=== PATIENT | male | born 1980 | race Caucasian/White ===

== ENCOUNTER → 2022-06-02 08:18 | Outpatient (CLI) | payer BC, SELFPAY ==
[2022-06-02 08:53] LABS: Basophils # 0.1 K/mm3 (0-0.2); Basophils % 1.1 % (0.1-2.0); Eosinophils # 0.3 K/mm3 (0.0-0.4); Eosinophils % 4.3 % (0.1-12.0); Hematocrit 46.9 % (42.0-52.0); Hemoglobin 15.6 g/dL (14.1-18.0); Lymphocytes # 2.5 K/mm3 (0.7-4.5); Lymphocytes % 41.9 % (10-50); Mean Corpuscular HGB Conc 33.3 g/dL (31.8-35.4); Mean Corpuscular Hemoglobin 28.3 pg (27.0-31.2); Mean Corpuscular Volume 85.2 fl (80-94); Mean Platelet Volume 8.7 fl (7.4-10.4); Monocytes # 0.3 K/mm3 (0.1-1.0); Monocytes % 4.5 % (1.7-9.3); Neutrophils # 2.9 K/mm3 (1.8-7.8); Neutrophils % 48.2 % (37.0-80.0); Platelet Count 200 K/mm3 (142-424); Red Blood Count 5.51 M/mm3 (4.60-6.20); Red Cell Distribution Width 14.3 % (11.5-17.5)
[2022-06-02 09:22] LABS: Alanine Aminotransferase 17 U/L (12-78); Albumin Level 4.1 g/dl (3.5-5.0); Albumin/Globulin Ratio 1.6 (1.1-1.8); Alkaline Phosphatase 86 U/L (38-126); Anion Gap 11.5 mEq/L (5-15); Aspartate Amino Transferase 21 U/L (17-59); Bilirubin,Total 0.5 mg/dl (0.2-1.3); Blood Urea Nitrogen 19 mg/dl (9-20); Calcium 8.7 mg/dl (8.4-10.2); Carbon Dioxide 27 mmol/L (22.0-30.0); Chloride 105 mmol/L (98-107); Cholesterol 169 mg/dl (140-200); Estimated Glomerular Filt Rate 83 ml/min (>60); GFR (African American) 101 ML/MIN (>60); Globulin 2.5 g/dL (1.3-3.2); Glucose 98 mg/dl (74-100); HDL Cholesterol 34 mg/dl (40-60); Potassium 4.5 mmoL/L (3.5-5.1); Sodium 139 mmol/L (136-145); Total Protein,Serum 6.6 g/dl (6.3-8.2); Triglycerides 140 mg/dl (30-150); VLDL Cholesterol 28 mg/dL (0-40)
[2022-06-02 09:32] LABS: Direct LDL Cholesterol 109.77 mg/dL (100-129)
[2022-06-02 09:36] LABS: 25-OH Vitamin D, Total 33.7 ng/mL (30-100)
[2022-06-02 09:51] LABS: Thyroid Stimulating Hormone 2.09 uIU/mL (0.465-4.68)
[2022-06-02 10:10] LABS: Vitamin B12 241 pg/mL (239-931)
== END ==
PROVIDERS: PCP Nurse Practitioner Family; Visit Provider Nurse Practitioner Family
DX: Z00.00 Encounter for general adult medical examination without abnormal findings (principal); I10 Essential (primary) hypertension; R20.2 Paresthesia of skin; R53.83 Other fatigue
CPT/HCPCS: 36415; 80053; 80061; 82306; 82607; 84443; 85025

== ENCOUNTER 2023-08-10 07:29 | Outpatient (CLI) | payer OTHER, SELFPAY ==
[2023-08-10 08:50] LABS: Alanine Aminotransferase 20 U/L (12-78); Albumin/Globulin Ratio 1.5 (1.1-1.8); Alkaline Phosphatase 96 U/L (38-126); Anion Gap 12.9 mEq/L (5-15); Aspartate Amino Transferase 21 U/L (17-59); Bilirubin,Total 0.4 mg/dl (0.2-1.3); Blood Urea Nitrogen 25 mg/dl (9-20); Calcium 9.1 mg/dl (8.4-10.2); Carbon Dioxide 26 mmol/L (22.0-30.0); Chloride 102 mmol/L (98-107); Chol/HDL Ratio 5.1 (1-3.5); Cholesterol 202 mg/dl (140-200); Estimated Glomerular Filt Rate 83 ml/min (>60); GFR (African American) 100 ML/MIN (>60); Globulin 2.6 g/dL (1.3-3.2); Glucose 98 mg/dl (74-100); HDL Cholesterol 40 mg/dl (40-60); Potassium 3.9 mmoL/L (3.5-5.1); Sodium 137 mmol/L (136-145); Total Protein,Serum 6.6 g/dl (6.3-8.2); Triglycerides 265 mg/dl (30-150); VLDL Cholesterol 53 mg/dL (0-40)
[2023-08-10 09:00] LABS: Direct LDL Cholesterol 122.58 mg/dL (100-129)
== END 2023-08-10 23:59 | disposition home or self-care (01) ==
PROVIDERS: PCP Nurse Practitioner Family; Visit Provider Nurse Practitioner Family
DX: Z00.00 Encounter for general adult medical examination without abnormal findings (principal); I10 Essential (primary) hypertension
CPT/HCPCS: 36415; 80053; 80061

== ENCOUNTER 2023-09-15 17:57 | Emergency (ER) | payer OTHER, SELFPAY ==
[2023-09-15 18:15] VITALS: BP 142/85; PULSE 77; RESP 19; TEMP 36.9; O2SAT 97; BMI 35.9
--- NOTE | 2023-09-15 18:41 | EXP.UTC ---
Discharge Plan Disposition Patient Disposition: Home, Self-Care Condition: Good Prescriptions Prescriptions: New ibuprofen [IBU] 800 mg tablet 800 mg PO TIDP PRN (Reason: Moderate Pain) Qty: 20 0RF methocarbamol 750 mg tablet 750 mg PO Q8H PRN (Reason: muscle spasm) Qty: 15 0RF No Action amlodipine 5 mg Tablet 5 mg PO DAILY omeprazole 40 mg Capsule,Delayed Release(Dr/Ec) 40 mg PO DAILY metoprolol succinate 25 mg Tablet Extended Release 24 Hr 25 mg PO DAILY Referrals Follow up/Referrals: Margie Mc APRN [Primary Care Provider] - See instructions Activity Restrictions/Add. Instructions Additional Instructions/Restrictions: *Ibuprofen ramesh 6 hours with meal as needed for pain/inflammation *Not additional anti-inflammatory like motrin, aleve, advil with the above amount of ibuprofen. You can still take Tylenol every 4 hours as needed if you need something else for pain *Ice 20 minutes every 2 hours for the first 48 hours after the initial injury followed by moist heat every 20 minutes 3-4 times a day to affected area *Muscle relaxer every 8 hours as needed for muscle spasms but remember, it WILL cause drowsiness You cannot take it and work, drive, operate machinery or care for small children. *Keep this area active, no movement leads to more stiffness, However take it easy and avoid heavy lifting pushing or pulling *Follow up with you family doctor if no improvement for further treatment Clinical Impressions Clinical Impression: Muscle spasm Instructions Patient Instructions: Methocarbamol, DI for Muscle Spasm Print Language Print Language: Cymraes Discharge ED Provider: Kylie Yao [facility] General Stated complaint: right shoulder blade pain Mode of Arrival: Ambulatory Source of Information: Patient Limitations: No Limitations Time Seen by Provider: 09/15/23 18:41 Description of Symptoms (Recalled from Triage Doc. by RN): PATIENT C/O PAIN TO RIGHT SHOULDER BLADE AREA THAT STARTED THIS MORNING WHEN HE REACHED OVER TO PUT HIS SEAT BELT ON HEENT Symptoms (Recalled from RN notes): No Resp Symptoms (Recalled from RN notes): No Skin Symptoms (Recalled from RN notes): No MS Symptoms (Recalled from RN notes): Yes Functional Status (Recalled from RN notes): WNL History of Present Illness Provider Complaint: Patient states he was in [place] this morning and he got into the car and reached and put on his seatbelt and then he reached to get something out of the floor several times and the seat belt caught, States he is not sure if he may have pulled something or what but he started having pain when he would move certain ways, take a deep breath or stretch States this evening it was still bothering him so he came in to get it looked at Related Data Home Medications ?Medication ?Instructions ?Recorded ?Confirmed amlodipine 5 mg tablet 5 mg PO DAILY 09/15/23 09/15/23 metoprolol succinate 25 mg 25 mg PO DAILY 09/15/23 09/15/23 tablet,extended release 24 hr omeprazole 40 mg capsule,delayed 40 mg PO DAILY 09/15/23 09/15/23 release Previous Rx's ?Medication ?Instructions ?Recorded ibuprofen 800 mg tablet (IBU) 800 mg PO TIDP PRN Moderate Pain 09/15/23 #20 tabs methocarbamol 750 mg tablet 750 mg PO Q8H PRN muscle spasm #15 09/15/23 tabs Allergies Allergy/AdvReac Type Severity Reaction Status Date / Time codeine Allergy Verified 09/15/23 18:31 Worker's Comp Is this a Worker's Comp case?: No [facility] Disclaimer: The information contained in this section may have been updated after the patient was seen, as this information can be updated by other users. Medical History (Updated 09/15/23 @ 18:56 by Kylie Yao APRN) History of gastroesophageal reflux (GERD) Kidney stone Hypertension Surgical History History of tonsillectomy Social History Smoking Status: Unknown if ever smoked alcohol intake: never current occupational status: employed Travel in the last 8 weeks: None ROS Obtained: Yes All systems reviewed & no additional complaints except as documented and Yes Systems reviewed as appropriate & no additional complaints except as documented Constitutional Constitutional: Reports system reviewed and no additional complaints, except as documented and Reports as per HPI ENT Ears, Nose, Mouth, and Throat: Reports system reviewed and no additional complaints, except as documented and Reports as per HPI Cardiovascular Cardiovascular: Reports system reviewed and no additional complaints, except as documented and Reports as per HPI Respiratory Respiratory: Reports system reviewed and no additional complaints, except as documented and Reports as per HPI Musculoskeletal Musculoskeletal: Reports system reviewed and no additional complaints, except as documented, Reports as per HPI and Reports other Comments: Pain in right shoulder blade area worse with movement, deep breath Physical Exam General General appearance: alert and in no apparent distress ENT ENT exam: Present mucous membranes moist Respiratory Respiratory exam: Present normal lung sounds bilaterally; Absent respiratory distress or wheezes Cardiovascular Cardiovascular exam: Present regular rate, normal rhythm and normal heart sounds Back Exam Back exam: Present tenderness and muscle spasm Back 1 view image: 1. reports tightness feeling, pain with movement no bruising or swelling noted Neurological Exam Neurological exam: Present alert, oriented X3 and normal gait Skin Skin exam: Present dry and intact; Absent normal color or rash Medical Decision Making Kurt Inquiry Pt receiving controlled substance: No Kurt was queried for this patient: No Vital Signs: 09/15/23 18:15 Temperature 98.5 F Temperature Source Oral Pulse Rate [Left Brachial] 77 Respiratory Rate 19 Blood Pressure [Left Arm] 142/85 H Blood Pressure Mean [Left Arm] 104 Blood Pressure Source [Left Arm] Automatic Cuff Blood Pressure Position [Left Arm] Sitting 02 Sat by Pulse Oximetry 97 Oxygen Delivery Method Room Air
[2023-09-15 18:59] VITALS: BP 142/85; PULSE 77; RESP 19; TEMP 36.9; O2SAT 97
== END 2023-09-15 19:01 | disposition home or self-care (01) ==
PROVIDERS: Emergency Provider Nurse Practitioner; PCP Nurse Practitioner Family
DX: M54.6 Pain in thoracic spine (principal); M25.511 Pain in right shoulder; M62.830 Muscle spasm of back; X50.0XXA Overexertion from strenuous movement or load, initial encounter
CPT/HCPCS: 99204; 99212; G0463

== ENCOUNTER 2025-01-10 03:17 | Emergency (ER) | payer BC, SELFPAY ==
--- OUTSIDE RECORDS SUMMARY | 2022-10-21 06:04 | XMS_ITS | Continuity of Care Document ---
Author Organization [facility] Address [address] [place] [address] Phone Care Team Providers Care Lyric Writer Name Role Phone Unavailable Unavailable Unavailable Procedures Procedure Date Offic/outpt E&m [place] [id number] 1 Services provided in an urgent care [facility] er Advance Directives Directive Yes / No Effective Date File Name No Information Encounters Encounter Description Practice Location Reason(s) For Visit Diagnoses Date Provider Providers Copied on Encounter [facility], [address], [place], [place], [id number], tel:[phone] [facility] No Information 3 No Information Offic/outpt E&m [address] [facility], [address], [place], [place], [id number], tel:[phone] [facility] Rash (chief complaint) Rash and nonspecific skin eruption 1 No Information Family History Family Member Type Diagnosis Age At Onset No Information Payers Payer name Insurance type Covered republican ID Authorkieraa karina(s) [facility] CI [id number] Social History Type Description Quantity Date Captured Comments Sex Male Smoking Status No Information Chief Complaint And Reason For Visit No Information Reason For Referral Reason For Referral No Information Plan Of Treatment Date Type Action Status Referral Ordered: Referrals: Dermatology. Evaluate and treat ordered History Of Present Illness Encounter Date Complaint History Of Prese nt Illness Rash Onset 2 days ago . Severity is 2. Location is hand and HANDS AND FEET. The patient describes it as erythematous. It occurs continuously. The problem is with no change. Denies aggravating factors. Denies relieving factors. Pertinent negatives include diarrhea, fatigue, fever, headache, joint symptoms, kerion(s) in scalp, pain, sore throat, urticaria and vomiting. Comments: PATIENT COMPLAINS OF SMALL BLISTERS OF BILATERAL HANDS AND FEET FOR TWO DAYS. NO KNOWN TRIGGERS OR FACTORS. NO FEVER OR ANY OTHER SYMPTOMS.. Functional Status Date Functional Assessmen t No Information Instructions Date Instruction Additional Infor jon -FOLLOW UP WITH DERM IN TWO TO FIVE DAYS.-PATIENT WAS EDUCATED ON THE TREATMENT PLAN.-IF MEDICATIONS WERE PRESCRIBED, PLEASE TAKE DIRECTED FOR THE FULL COURSE OF TREATMENT. MONITOR SYMPTOMS CLOSELY. RISKS AND BENEFITS OF MEDICATIONS DISCUSSED. PLEASE SEE PROVIDED EDUCATION HANDOUT.-IF SIGNS OR SYMPTOMS WORSEN, PLEASE RETURN TO CLINIC OR GO TO PRIMARY CARE PROVIDER FOR IMMEDIATE FOLLOW UP. IF SIGNS OR SYMPTOMS WORSEN ACUTELY AND/OR WORRISOME CONCERNS ARISE, PLEASE REPORT DIRECTED TO THE EMERGENCY DEPARTMENT FOR PROMPT EVALUATION.-IF LAB TESTS OR IMAGING RESULTS ARE PENDING, WE WILL CONTACT YOU WITH RESULTS ONCE COMPLETED.-FOLLOW UP WITH PCP IN 2 TO 3 DAYS OR SOONER IF DIRECTED FOR DISCHARGE FOLLOW UP FOR CONTINUATION OF CARE. IT IS VERY IMPORTANT THAT YOU FOLLOW-UP DIRECTED BY YOUR NEXTCARE PROVIDER. DO NOT DELAY IN SEEKING ASSISTANCE IN SCHEDULING YOUR FOLLOW-UP.-PATIENT VERBALIZED UNDERSTANDING AND AGREEMENT WITH PLAN OF CARE. THEY DEMONSTRATED UNDERSTANDING TEACH BACK APPROACH WAS COMPLETED. Related to Rash and nonspecific skin eruption Assessments Type Assessment Date No Information Patient Care Teams Name Effective Dates (start - stop) Status Members No Information
[2025-01-10] VITALS (10 sets, daily range): BP systolic 125–156; BP diastolic 86–115; PULSE 84–98; RESP 17–22; TEMP 37; O2SAT 94–98; BMI 35.9
--- OUTSIDE RECORDS SUMMARY | 2025-01-10 03:25 | XMS_ITS ---
Author Organization Unknown ENCOUNTERS Encounter Performer Location Date Diagnosis Diagnosis Status Pre Admit [place] [address] [place] [address] [phone] Emergency [place] [address] [place] [address] [phone] Pre Admit [place] [address] [place] [address] [phone] Emergency [place] [address] [place] [address] [phone] XAVIER *Note: Encounters from your own facility or health system may be excluded. Allergies, Adverse Reactions, Alerts Allergen Type Severity Identification Date codeine drug allergy 1 [id number] Medications Name Date Quantity Days Supplied GPI Number
--- OUTSIDE RECORDS SUMMARY | 2025-01-10 03:25 | XMS_ITS | Data Portability ---
Author Organization [facility] Address [address] [address] [place] [address] Care Team Providers Care Management And Budget Analyst Name Role Phone [facility] JORDYN Davis jason Care Provider DOM BERNAL Orthopedic Surgeon GAVIOTA JACK [facility] [phone] Assessment Encounter Date Assessment Date Assessment LastModified by Organization Details LastModified Time 06/25/2024 06/25/2024 Clinically presents as some degree of right cubital/carpal tunnel syndrome. Given the prolonged nature of symptoms and recent worsening of symptoms, recommend further investigation with EMG/NCV and follow up with Dr. Quezada to discuss results and treatment plan. Patient expressed understanding in this regard and will continue activity modification and nighttime splinting in the interim. RTO as scheduled or sooner if needed, advised to call office with any questions/concern brown Not available 06/29/2024 15:03:02 08/04/2024 08/04/2024 EMG/NCV reviewed , independently assessed, personally discussed with the patient. Findings consistent with moderate right carpal tunnel syndrome. This was further supported by supplemental ultrasound study. Incidentally noted was mild to moderate left carpal tunnel syndrome, which is currently asymptomatic and we will continue to monitor and treat as needed should symptoms develop over time. In regards to his symptomatic right carpal tunnel syndrome, discussion was had with patient in clinic today regarding diagnosis of carpal tunnel syndrome. Treatment options consisting of both conservative management and surgical intervention were discussed. I explained that initial treatment of carpal tunnel syndrome typically consist of conservative measures such as nighttime wrist splinting and activity modifications. If this fails or if the diagnosis is unclear we sometimes can consider a corticosteroid injection. However, if conservative measures fail, symptoms are worsening with a clear diagnosis of carpal tunnel syndrome, and/or there is evidence of severe compression at the carpal canal then surgical carpal tunnel release is recommended. At this time patient has failed conservative management with worsening symptoms and has elected to proceed with surgical carpal tunnel release. Patient will be scheduled for right endoscopic carpal tunnel release at his convenience. Risk and benefits of the surgical procedure were explained to the patient in clinic today, including but not limited to incomplete symptom relief, recurrence, need for additional procedures, stiffness, damage to surrounding tissues/structure s/nerves/vessels, wound complications, and infection. Patient expressed understanding and all questions were answered to the patient's satisfaction. [email or web address] Not available 08/04/2024 12:44:42 09/01/2024 09/01/2024 Patient can gradually resume activity with the hand as tolerated at this time. I discussed scar massage with patient in clinic today. Patient will follow-up in [address] Quezada, but will call in the interim with any additional questions or concerns. Plan to address his left hand once he has sufficiently recovered. Not available 09/03/2024 15:59:41 Plan of Treatment Reminders Order Date Submit Date Provider Last Modified By Organization Details Last Modified Time Details Appointments None recorded. Lab None recorded. Referral None recorded. Procedures nerve conduction study/EMG, upper extremity (PROC) - right UE EMG/NCV to eval for right CTS/CuTS 2024 025 EDDIE Jack MD, [facility] [place][note 2][address] [place], [address], 08:53:20 Surgeries None recorded. Imaging None recorded. Medication Orders None recorded. Patient TargetsNo targets recorded. Patient Instructions Encounter Date Encounter Id Patient Instructions Last Modified By Organization Details Last Modified Time 08/04/2024 [id number] CATEGORY DESCRIPTION MINUTES Prepare to see the patient (e.g. review of tests) 5 Obtain/review separately obtained history 5 Perform medically appropriate exam/evaluation 5 Order medications, tests, or procedures Steamfitter/educate the patient/family/car egiver Refer/communicate w/other healthcare professionals Document clinical information into health record 5 Non-billable independent interp of results Non-billable care coordination TOTAL TIME 03482 (15-29) 03385 (30-44) 24921 (45-59) 39048 (60-74) 06681 (10-19) 81157 (20-29) 16112 (30-39) 97974 (40-54) Not available 08/04/2024 09:10:31 Reason for Referral None Reported. Results Created Date Observation Date Name Description Value Unit Range Abnormal Flag Note LastModifiedBy Organization Detail LastModifiedTime 08/05/19 25 nerve condu ction study /EMG, upper extre mity (PROC ) No observ ation record ed. bdevers Gaviota Jack MD [address] [place], [address], 08/05/2024 08:15:22 08/05/19 25 imagi ng/di agnos tic resul t No observ ation record ed. [email or web address] Not Available 2024 08:15:19 Result Notes None recorded. Problems No Known Problems Procedures Surgical History Date Name Laterality Status Provider Name and Address Organization Details Recorded Time 08/18/19 Carpal Tunnel Release, Endoscopic - Giovanny completed SHILPA QUEZADA MD [address] [place], [address], [facility] 08/17/2024 14:23:43 08/05/19 Electromyography (EMG) with Nerve Conduction Study (NCV) [facility]/04[facility] 07:59:24 Imaging Results None recorded. Procedure Notes None recorded. Medical Equipment None Reported. Allergies Allergen ID Allergen Name Allergen Category Reaction Reaction Severity Criticality Documentation Date Start Date Code Code System Note Provider Name and Address Organization Details Recorded Time 991610 codeine medicatio n itching Not available high 06/25/2024 2670 [facility] 10:41:14 Medications Name Sig Start Date Stop Date Status Note LastModified by Organization Details LastModified Time tramadol 50 mg tablet TAKE 1 TABL PO Q 6 HRS PRN FOR SEVERE POST SURGICAL PAIN 2024 active Not Available Not Available Not Avai lable meloxicam 7.5 mg tablet TAKE 1 TABLE PO QD WITH FOOD REGARDLE SS OF PAIN LEVEL FOR 1 WEEK. THEN TAKE 1 TABLET PO QD ONLY PRN FOR PAIN RELIEF THEREAFT ER 2024 active Pt no longer taking medicati on 09/01/24 MJ Not Available Not Available Not Available Neurontin 100 mg capsule TAKE 1 CAPSULE PO QHS FOR 1 WEEK 2024 active Pt no longer taking medicati on 09/01/24 MJ Not Available Not Available Not Available lisinopri l 10 mg-hydroc hlorothia zide 12.5 mg tablet Take 1 tablet every day by oral route. 08/04 completed Not Available Not Available Not Available losartan 100 mg-hydroc hlorothia zide 12.5 mg tablet Take 1 tablet every day by oral route. active Not Available Not Available No t Available metoprolo l succinate active Not Available Not Available No t Available Vitals Date Recorded Pain severity - 0-10 verbal numeric rating [Score] - Reported Body height Body mass index (BMI) Body weight Provider Name and Address Organization Details Last Updated DateTime 06/25/2024 0 182.88 cm 38.7 kg/m2 838479.83 g Chino Mendoza [facility] 06/25/2024 15:18:58 Date Recorded Body height Pain severity - 0-10 verbal numeric rating [Score] - Reported Body mass index (BMI) Body weight Provider Name and Address Organization Details Last Updated DateTime 08/04/2024 182.88 cm 0 38.7 kg/m2 915153.83 g Tea Vizcaino [facility] 08/04/2024 10:41:36 Date Recorded Body height Heart rate Systolic And Diastolic Provider Name and Address Organization Details Last Updated DateTime 08/04/2024 182.88 cm 87 /min 134/88 mm[Hg] Db Weber [facility] 08/04/2024 08:03:38 Date Recorded Body height Body mass index (BMI) Body weight Provider Name and Address Organization Details Last Updated DateTime 09/01/2024 182.88 cm 38.7 kg/m2 473037.83 g Caitlyn Garcia [facility] 09/01/2024 09:54:23 Social History Question Answer Notes LastModified by Organizat ion Details LastModified Time Tobacco Smoking Status Current Every Day Smoker Chiquis Mazariegos [facility] 08/04/2024 10:19:42 How Many Years Have You Consumed Alcohol? 25 [email or web address] Information not available 08/04/2024 What Is Your Level Of Caffeine Consumption? Moderate [email or web address] Information not available 08/04/2024 How Much Tobacco Do You Chew? None [email or web address] Information not available 08/04/2024 What Is The Highest Grade Or Level Of School You Have Completed Or The Highest Degree You Have Received? FK40745-6 [email or web address] Information not available 08/04/2024 How Many Years Have You Used Illicit Or Recreational Drugs? 0 [email or web address] Information not available 08/04/2024 What Is Your Relationship Status? [email or web address] Information not available 08/04/2024 At What Age Did You Start Smoking Tobacco? 16 [email or web address] Information not available 08/04/2024 How Much Tobacco Do You Smoke? 2 PPD [email or web address] Information not available 08/04/2024 How Many Years Have You Smoked Tobacco? 25 [email or web address] Information not available 08/04/2024 How Many Years Have You Used E-cigarettes Or Vape? 1 [email or web address] Information not available 08/04/2024 How Many Years Have You Used Smokeless Tobacco? 3 [email or web address] Information not available 08/04/2024 Sex: Male Functional Status Question Answer Note LastModified by Organizat ion Details LastModified Time How many times per week do you consume alcohol? Less than 1 time per week [email or web address] Information not available 08/04/2024 Do you use any illicit or recreational drugs? No [email or web address] Information not available 08/04/2024 Do you or have you ever used any other forms of tobacco or nicotine? Yes [email or web address] Information not available 08/04/2024 What is your level of alcohol consumption? Occasional [email or web address] Information not available 08/04/2024 Do you or have you ever used smokeless tobacco? 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 Former user of electronic cigarettes [email or web address] Information not available 08/04/2024 Mental Status None recorded. Family History Nothing Reported. Medical History Condition Response Coronary Artery Disease N Other N Gout N MRSA N Emphysema N Head Trauma/Injury N Ostomy N COPD N Depression N Lung Disease N Pacemaker N Prostate Problems N Vascular Disease N Anesthesia Complications N Gastrointestinal Disease N Paralysis N Anxiety Disorder N Spasticity N Autoimmune disease N Vision or Eye Problems N Arthritis N Serious Illness or Injuries N Blood Clot N Cancer N Stroke N Crohn's Disease N Leg or Foot Ulcers N Alcohol Overuse/Alcohol Abuse N Liver Disease N Arrhythmia N Rheumatoid Arthritis N Fibromyalgia N Headaches Y Kidney Disease N Allergies/Hayfever Y Heart Problems N Parkinson's Disease N Hospitalizations Y Falls N Thyroid Problems N Kidney or Bladder Problems Y ADD/ADHD Y Skin Problems N Joint Pain N Osteoporosis/Osteopenia N Neck Pain N Anemia N Back Pain Y Urinary Problems N Brain Injury N Heart Attack (VA) N Mental Illness N Diabetes N Bleeding Disorder N Seizures/Epilepsy N Tuberculosis N AIDS/HIV N Congestive Heart Failure (CHF) N Hyperlipidemia N Abuse/Domestic Violence N Amputation N Ankylosing Spondylitis N Peripheral Vascular Disease N Sleep Apnea N Sleep Disorder N Hepatitis N Aneurysm N Neuropathy N Heart Disease N Hypertension Y Past Encounters Encounter ID Performer Location Encounter Start Date Encounter Closed Date Diagnosis/Indication Diagnosis SNOMED-CT Code Diagnosis ICD10 Code Diagnosis IMO Codes Diagnosis Note [id number] DOM BERNAL PA-C [facility] [address] [place] [address] 06/25/2024 15:08:07 06/25/2024 15:33:33 Skin sensation disturbance 79598186 R20.9 [id number] SHILPA QUEZADA MD [facility] [address] [place] [address] 08/04/2024 10:18:48 08/04/2024 11:17:39 Bilateral carpal tunnel syndrome 5740510250 4054607 G56.03 [id number] EMG/NCV (07/31/2024 ) demonstrat ed moderate right carpal tunnel syndrome and mild to moderate left carpal tunnel syndrome. Supplement al ultrasound on the right revealed median nerve compressio n within the carpal tunnel with associated proximal swelling, fascicular enlargemen t, flattening , and hypoechoge nicity consistent with carpal tunnel syndrome on the right. [id number] GAVIOTA JACK MD [facility] [address] [place] [address] 08/04/2024 07:37:36 08/07/2024 14:42:44 Bilateral carpal tunnel syndrome [id number] 3433687 G56.03 031608 Right moderate carpal tunnel syndrome. Mild wrist joint effusion noted on ultrasound without activity on power Doppler. Given report of intermitte nt symptoms, decided to check left upper extremity as well. Electrodia gnostic findings consistent with left mild to moderate carpal tunnel syndrome. Follow-up with Dr. Quezada later today for ongoing management . [id number] SHILPA QUEZADA MD SURGERY SCHEDULE [address] [place] [address] 08/17/2024 11:13:58 08/17/2024 11:16:42 [id number] DOM BERNAL PA-C ORTHOPEDI [address] [place] [address] 09/01/2024 09:49:52 09/01/2024 10:10:23 Postoperative visit 995133966 Z48.89 [id number] s/p right endoscopic carpal tunnel release (DOS: 08/17/24) Carpal mauro peng syndrome of left wrist 7712222364 88313 G56.02 [id number] EMG/NCV (07/31/2024 ) demonstrat ed moderate right carpal tunnel syndrome and mild to moderate left carpal tunnel syndrome. Supplement al ultrasound on the right revealed median nerve compressio n within the carpal tunnel with associated proximal swelling, fascicular enlargemen t, flattening , and hypoechoge nicity consistent with carpal tunnel syndrome on the right. s/p right endoscopic carpal tunnel release (DOS: 08/17/24) Health Concerns Section Related Observation LastModified by Organization Detai ls LastModified Time None Recorded Concern Status LastModified by Organization Details LastModified Time None Recorded Advance Directives Directive None Recorded Payers Insurance Date Sequence Insurance Name Policy Number Policy Villarreal Covered Member ID Villarreal Member ID Guarantor Name 09/26/2024 1 [place] [id number] Benjamín Lebron [id number] Benjamín Lebron Notes Date Note Type Note Provider Name and Address Organization Details Recorded Time 06/25/2024 text/html ROS as noted in the HPI 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 He denies injury. He reports years of progressive numbness/tingling in his right index, long, ring and small fingers with recent worsening of symptoms over the past few months. He has tried nighttime splinting but reports persistent symptoms. Consult requested by: Nabor Logan [facility] Physician: [facility] Hand dominance: RightLocation: Right Hand Pain level: 0 /10 Duration: several years Recent Surgery: No In office procedure? No Previous upper extremity surgery? No Have you or any of your immediate family members been seen by our hand surgeons before? No EMPLOYMENT STATUS: working full dutyEmployer: [employer] horse vansOccupation: Inventory ClerksIs this injury associated with a Workers Compensation claim? No DOM BERNAL PA-C [address] [place], [address], [facility] 06/29/2024 15:04:28 08/04/2024 text/html Patient referred for NCV/EMG. 43-year-old male presenting with right greater than left hand numbness. Right hand numbness has been present for about 15 years intermittently treated with with steroids. He has not noticed any specific swelling in the wrist. 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 He also mentions intermittent left hand numbness that is not as severe. GAVIOTA JACK MD [address] [place] [address], [address], [facility] 08/04/2024 09:10:35 08/04/2024 text/html ROS as noted in the HPI Patient is a 43-year-old [id number] male who was initially seen by my PA Dom Bernal for evaluation of right hand numbness and tingling. He presents back today for further evaluation and to discuss EMG/NCV results. Symptoms have been present to some extent for 15 years but have become worse over time. Symptoms are confined to the radial four digits. Treatment has consisted of bracing and intermittent use of prednisone Dosepaks. Symptoms wake him up from sleep even with use of a splint. Consult requested by: Nabor Logan [facility] Physician: [facility] Hand dominance: RightLocation: Right Hand Pain level: 0 /10 Duration: several years Recent Surgery: No In office procedure? No Previous upper extremity surgery? No Have you or any of your immediate family members been seen by our hand surgeons before? 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 No Mr. Lebron is here for same day EMG results. SHILPA QUEZADA MD [address] [place], [address], [facility] 08/04/2024 12:44:52 09/01/2024 text/html ROS as noted in the HPI Patient presents today for post op follow up visit. POST OP GLOBAL VISIT DATE OF SURGERY:08/17/24TIME POST SURGERY:15 DAYSSURGERY:right endoscopic carpal tunnel releasePREOP SYMPTOMSBETTERPain level:0/10 OVERALL ASSESSMENT EMPLOYMENT STATUS:working with restrictions DOM BERNAL PA-C [address] [place], [address], [facility] 09/03/2024 15:59:57
--- OUTSIDE RECORDS SUMMARY | 2025-01-10 03:25 | XMS_ITS | Patient Health Record ---
Author Organization [facility] Address [address] [place] [address] Care Team Providers Care Oncology Consultant Name Role Phone KRISTOPHER REDDING Unavailable [phone] Reason For Referral No Information Medications Medication SIG (Take, Route, Frequency, Duration) Notes Start Date End Date Status PriLOSEC 20 mg daily oral *please review for potential update for e-prescription and drug interaction check* Active Allergy oral *please review for potential update for e-prescription and drug interaction check* Active amLODIPine Besylate 5 MG take 1 tablet ( 5 mg) by oral route once daily Oral 1 Active hydroCHLOROthiazide 25 MG take 1 tablet (25 mg) by oral route once daily Oral 1 Active Pain pills for headaches, as needed oral *please review for potential update for e-prescription and drug interaction check* Active Toprol XL 25 MG take 1 tablet (25 mg) by oral route once daily Oral 1 Active Plan Of Treatment No Information Insurance Providers Payer Name Payer Address Payer Phone Subscriber Number Group Number Insured Name Patient Relationship to Insured Coverage Start Date Coverage End Date [facility] [address] [place] [address] [id number] Benjamín Lebron Self - patient is the insured [facility] [address] [place] [address] [id number] ViBenjamín Self - patient is the insured Medical (General) History Surgical History Surgery Date(Month/Year) Vasectomy; 2017-04-19 Appendectomy; 2017-04-19 Hernia Repair; 2017-04-19
--- OUTSIDE RECORDS SUMMARY | 2025-01-10 03:26 | XMS_ITS | Clinical Summary ---
[facility] Organization [facility] Address [address] [place] [address] Care Team Providers Care Automotive Consultant Name Role Phone Provider, No Known Primary Care Provider Unavail able Allergies No known active allergies Social History Tobacco Use Types Packs/Day Years Used Date Smoking Tobacco: Never Assessed Abuse Screen Answer Date Recorded Unsafe at Home or Work/School Not on file Feels Threatened by Someone? Not on file 10/2022 Does Anyone Keep You from Co ntacting Others or Doint Things Outside the Home? Not on file 11/19/2022 Physical Sign of Abuse Present Not on file 1 Housing Stability Answer Date Recorded Current Living Arrangements Not on file 10/2022 Potentially Unsafe Housing Conditions Not on steven e 11/19/2022 Family and Community Support Answer Kade e Recorded Help with Day-to-Day Activities Not on file 11/19/2022 Lonely or Isolated Not on file 11/19/2022 Employment Answer Date Recorded Do you want help finding or keeping work or a renu b? Not on file 11/19/2022 Disabilities Answer Date Recorded Concentrating, Remembering, or Making Decisions Difficulty Not on file 11/19/2022 Doing Errands Independently Difficulty Not on fi le 11/19/2022 Education Answer Date Recorded Help with school or training? Not on file Preferred Language Not on file 11/19/2022 Sex and Gender Information Value Date Recorded Sex Assigned at Not on file Legal Sex Male 8:16 PM EDT Gender Identity Not on file Sexual Orientation Not on file Plan of Treatment Health Maintenance Due Date Last Done Comments TDAP/TD VACCINES (1 - Tdap) 2001 ANNUAL PHYSICAL 02/19/2023 HEPATITIS C SCREENING 02/19/2023 INFLUENZA VACCINE 09/11/2024 Pneumococcal Vaccine 0-49 Aged Out No longer eligible based on patient's age to complete this topic Insurance [facility] [employer] Care Teams Automotive Consultant Relationship Specialty Start Date End Date Provider, No Known [facility] [place] [address] PCP - General 03/01/22
--- NOTE | 2025-01-10 03:37 | XR_ITS ---
PROCEDURE INFORMATION: Exam: XR Left Hip Exam date and time: 01/10/2025 4:05 AM Age: 44 years old Clinical indication: Other: Thigh pain No known acute injury/NKI TECHNIQUE: Imaging protocol: Radiologic exam of the left hip. Views: 2 or 3 views hip with pelvis when performed. COMPARISON: CR XR FEMUR LT 2V 01/10/2025 4:05 AM FINDINGS: Bones/joints: Unremarkable visualized bones and joints. Soft tissues: Unremarkable. IMPRESSION: Unremarkable visualized bones and joints.
--- NOTE | 2025-01-10 03:37 | XR_ITS ---
PROCEDURE INFORMATION: Exam: XR Left Knee Exam date and time: 01/10/2025 4:05 AM Age: 44 years old Clinical indication: Pain; Knee and thigh; Left; Additional info: Knee/thigh pain No known acute injury/NKI TECHNIQUE: Imaging protocol: Radiologic exam of the left knee. Views: 3 views. COMPARISON: CR XR FEMUR LT 2V 01/10/2025 4:05 AM FINDINGS: Bones/joints: Unremarkable visualized bones and joints. Soft tissues: Unremarkable. IMPRESSION: Unremarkable visualized bones and joints.
--- NOTE | 2025-01-10 03:37 | XR_ITS ---
PROCEDURE INFORMATION: Exam: XR Left Femur Exam date and time: 01/10/2025 4:05 AM Age: 44 years old Clinical indication: Pain; Thigh; Left; Additional info: Thigh pain No known acute injury/NKI TECHNIQUE: Imaging protocol: Radiologic exam of the left femur. Views: 2 views. COMPARISON: CR XR HIP LT 2-3V W/PELVIS 01/10/2025 4:05 AM FINDINGS: Bones/joints: Unremarkable visualized bones and joints. Soft tissues: Unremarkable. IMPRESSION: Unremarkable visualized bones and joints.
[2025-01-10] MEDS: METHOCARBAMOL 500MG TABLET 1500 MG PO (03:56)
[2025-01-10] MEDS: LIDOCAINE 5% TRANSDERMAL PATCH 1 EACH TD (03:56)
--- NOTE | 2025-01-10 04:28 | HMH.EDGENADL ---
Discharge Plan Disposition Patient Disposition: Home, Self-Care Prescriptions Prescriptions: New methocarbamol 500 mg tablet 1,500 mg PO Q6H PRN (Reason: pain) Qty: 30 0RF lidocaine 5 % adhesive patch,medicated 1 patch topical DAILY PRN (Reason: pain) Qty: 30 0RF Rx Instructions: leave on most painful area for up to 12 hrs No Action amlodipine 5 mg Tablet 5 mg PO DAILY omeprazole 40 mg Capsule,Delayed Release(Dr/Ec) 40 mg PO DAILY metoprolol succinate 25 mg Tablet Extended Release 24 Hr 25 mg PO DAILY ibuprofen [IBU] 800 mg tablet 800 mg PO TIDP PRN (Reason: Moderate Pain) Qty: 20 0RF methocarbamol 750 mg tablet 750 mg PO Q8H PRN (Reason: muscle spasm) Qty: 15 0RF Referrals Follow up/Referrals: Margie Mc APRN [Primary Care Provider, Medical] - See instructions Activity Restrictions/Add. Instructions Additional Instructions/Restrictions: Please follow-up with your primary care provider. Please return to the emergency department if you develop any new or worsening symptoms or become concerned for your health. Please take Tylenol ibuprofen and Robaxin as needed for pain. Clinical Impressions Clinical Impression: Acute leg pain Qualifiers: Laterality: left Qualified Code(s): M79.605 - Pain in left leg Print Language Print Language: Macedonian Discharge ED Provider: Pacheco Oneill Adult HPI General Chief complaint: PAIN Stated complaint: L knee, thigh pain Time Seen by Provider: 01/10/25 03:20 Mode of Arrival: Ambulatory Source of Information: Patient Description of Symptoms (Recalled from ER Triage Doc. by RN): PT REPORTS LEFT THIGH AND KNEE PAIN THAT HAS BEEN COMING AND GOING SINCE SATURDAY. TONIGHT THE PAIN WOKE HIM UP OUT OF SLEEP. PT REPORTS IT IS AN ACHING PAIN IN THE FRONT OF THE LEG History of Present Illness HPI narrative: 44-year-old male with history of hypertension presents for left thigh pain that has been on and off for the last couple of days. He reports an aching pain, primarily localized to the left anterior thigh. He also reports pain in his knee and his hip occasionally, though he is not sure where the pain is coming from exactly. The pain comes and goes. He has had some back pain as well recently, but no current back pain. He denies any recent trauma, no history of IV drug use, no history of blood clots. He denies any new numbness or weakness. Normal bowel bladder function, no groin numbness Related Data Home Medications ?Medication ?Instructions ?Recorded ?Confirmed amlodipine 5 mg tablet 5 mg PO DAILY 09/15/23 09/15/23 metoprolol succinate 25 mg 25 mg PO DAILY 09/15/23 09/15/23 tablet,extended release 24 hr omeprazole 40 mg capsule,delayed 40 mg PO DAILY 09/15/23 09/15/23 release Previous Rx's ?Medication ?Instructions ?Recorded ibuprofen 800 mg tablet (IBU) 800 mg PO TIDP PRN Moderate Pain 09/15/23 #20 tabs methocarbamol 750 mg tablet 750 mg PO Q8H PRN muscle spasm #15 09/15/23 tabs lidocaine 5 % topical patch 1 patch topical DAILY PRN pain #30 01/10/25 ea methocarbamol 500 mg tablet 1,500 mg (3 x 500 mg) PO Q6H PRN 01/10/25 pain #30 tabs Allergies Allergy/AdvReac Type Severity Reaction Status Date / Time codeine Allergy Verified 09/15/23 18:31 [facility] Disclaimer: The information contained in this section may have been updated after the patient was seen, as this information can be updated by other users. Medical History (Updated 01/10/25 @ 04:42 by Pacheco Oneill MD) History of gastroesophageal reflux (GERD) Kidney stone Hypertension Surgical History History of tonsillectomy Social History (Updated 09/15/23 @ 18:56 by Kylie Yao APRN) Smoking Status: Current every day smoker alcohol intake: never current occupational status: employed Travel in the last 8 weeks?: None Have you lived/traveled outside [place] in past 30 days?: No Contact w/someone who lives/traveled outside [place] past 30 days?: No Exposure to someone with infectious disease in past 14 days?: No Do you have a fever (greater than 100.4 F or 38 C)?: No Have you tested positive for COVID-19?: No Exposed to someone with COVID-19 in past 14 days?: No Do you have a sore throat?: No Do you have a cough?: No Do you have any weakness?: No Do you have any diarrhea?: No Are you experiencing any unusual bleeding?: No Do you have any muscle aches/pain?: No Do you have any abdominal pain?: No Are you experiencing loss of taste or smell?: No ROS Obtained: Yes All systems reviewed & no additional complaints except as documented Physical Exam General General appearance: alert and in no apparent distress Head Head exam: atraumatic and normocephalic Eye Eye exam: Present normal appearance, PERRL and EOMI ENT ENT exam: Present normal oropharynx and normal external ear exam Neck Neck exam: Present normal inspection and full ROM Chest Chest inspection: Present normal inspection and symmetric chest wall rise; Absent tenderness Respiratory Respiratory exam: Present normal lung sounds bilaterally; Absent respiratory distress Cardiovascular Cardiovascular exam: Present regular rate and normal rhythm Abdominal Exam Abdominal exam: Present soft; Absent distention, tenderness or guarding Extremities Exam Extremities exam: Present normal inspection, full ROM and tenderness (Mild tenderness over the anterior thigh); Absent edema, joint swelling or calf tenderness Back Exam Back exam: Present normal inspection; Absent tenderness Neurological Exam Neurological exam: Present alert and oriented X3; Absent motor sensory deficit Psychiatric Psychiatric exam: Present normal affect and normal mood Skin Skin exam: Present warm, dry and normal color Lymphatic Lymphatic Findings: no adenopathy Medical Decision Making Medical Records Medical records reviewed: Yes I reviewed the patient's medical records. Screening: Per USPSTF and CDC recommendations, given the prevalence of disease in our region, it is our hospital?s policy to screen for HIV and viral Hepatitis for all patients aged 18 and over and those with ongoing risk factors. Kurt Inquiry Pt receiving controlled substance: No Kurt was queried for this patient: No Vital Signs: 01/10/25 03:35 01/10/25 03:37 01/10/25 03:45 Temperature 98.6 F Temperature Source Oral Pulse Rate 93 H Pulse Rate [Right] 95 H Respiratory Rate 22 Blood Pressure 146/103 H Blood Pressure [Right Arm] 149/115 H Blood Pressure Mean 117 Blood Pressure Mean [Right Arm] 126 Blood Pressure Source Blood Pressure Position 02 Sat by Pulse Oximetry 98 96 Oxygen Delivery Method Room Air Room Air 01/10/25 03:45 01/10/25 04:00 01/10/25 04:01 Temperature Temperature Source Pulse Rate 92 H 86 95 H Pulse Rate [Right] Respiratory Rate Blood Pressure Blood Pressure [Right Arm] Blood Pressure Mean Blood Pressure Mean [Right Arm] Blood Pressure Source Blood Pressure Position 02 Sat by Pulse Oximetry 95 96 98 Oxygen Delivery Method Room Air Room Air Room Air 01/10/25 04:01 01/10/25 04:15 01/10/25 04:15 Temperature Temperature Source Pulse Rate 98 H Pulse Rate [Right] Respiratory Rate Blood Pressure 156/96 H 134/93 H Blood Pressure [Right Arm] Blood Pressure Mean 116 106 Blood Pressure Mean [Right Arm] Blood Pressure Source Blood Pressure Position 02 Sat by Pulse Oximetry 96 Oxygen Delivery Method Room Air 01/10/25 04:30 01/10/25 04:31 01/10/25 04:31 Temperature Temperature Source Pulse Rate 86 86 Pulse Rate [Right] Respiratory Rate Blood Pressure 125/86 Blood Pressure [Right Arm] Blood Pressure Mean 99 Blood Pressure Mean [Right Arm] Blood Pressure Source Blood Pressure Position 02 Sat by Pulse Oximetry 95 96 Oxygen Delivery Method Room Air Room Air 01/10/25 04:45 01/10/25 04:45 01/10/25 04:55 Temperature 98.6 F Temperature Source Oral Pulse Rate 84 85 Pulse Rate [Right] Respiratory Rate 17 Blood Pressure 130/86 130/86 Blood Pressure [Right Arm] Blood Pressure Mean 99 Blood Pressure Mean [Right Arm] Blood Pressure Source Automatic Cuff Blood Pressure Position Sitting 02 Sat by Pulse Oximetry 94 L Oxygen Delivery Method Room Air Room Air Lab Data Lab results reviewed: Yes I reviewed the patient's lab results. Orders (Tests/Meds): ED MEDICATIONS Discontinued Medications Generic Name Dose Route Start Last Admin Trade Name Freq PRN Reason Stop Dose Admin Ketorolac Tromethamine 30 mg 01/10/25 03:37 01/10/25 04:03 Ketorolac 30mg/Ml Vial IM 01/10/25 03:38 Not Given ONCE ONE Lidocaine 1 each 01/10/25 03:37 01/10/25 03:56 Lidocaine 5% Transdermal Patch TD 01/10/25 03:38 1 each ONCE ONE Administration Methocarbamol 1,500 mg 01/10/25 03:37 01/10/25 03:56 Methocarbamol 500mg Tablet PO 01/10/25 03:38 1,500 mg ONCE ONE Administration ORDERS Category Date Time Status Femur XR left 2 views [XR femur LT 2V] Stat Exams 01/10/25 03:37 Completed Hip XR left minimum 2 views [XR hip LT 2-3V w/pelvis] Exams 01/10/25 03:37 Completed Stat Knee XR left 3 views [XR knee LT 3V] Stat Exams 01/10/25 03:37 Completed Medical Decision Narrative: 44-year-old male without significant past medical history presents for intermittent left thigh pain. History was obtained via interactive discussion with patient. On arrival, patient is [afebrile, hemodynamically stable, satting appropriately, alert, oriented x4, GCS 15], moving all extremities spontaneously. Full physical exam performed and significant for mild tenderness to the anterior thigh, no tenderness to the knee or hip, equal strength in the lower extremities bilaterally, normal sensation, no tenderness to the spine Differential includes but is not limited to muscle spasm, muscle strain, arthritis, meralgia paresthetica. No evidence of spinal cord pathology based on history and exam. No history or exam findings consistent with DVT. Patient was given Tylenol Toradol lidocaine patch and Robaxin for symptomatic management and correction of underlying abnormalities. Workup initiated including radiographs of the left hip femur and knee. On re-evaluation, patient reports marked symptomatic improvement even prior to medications being given. Imaging independently interpreted by me and significant for no evidence of acute fracture or dislocation, no significant arthritic change. See radiology read for full review of final results. Blood work was considered, but deemed unnecessary due to low utility. Given patient history, exam and workup, patient's presentation most likely represents left leg pain. Likely musculoskeletal, possibly meralgia paresthetica. Recommend patient follow-up with PCP. Was discharged with muscle relaxers. Return precautions given. Procedures Risk/Benefits of Procedure(s) Were Explained: Yes Critical Care Critical Care Time Critical Care Time: No
== END 2025-01-10 05:03 | disposition home or self-care (01) ==
PROVIDERS: Emergency Provider Emergency Medicine; PCP Nurse Practitioner Family
DX: M79.652 Pain in left thigh (principal); M25.552 Pain in left hip; M25.562 Pain in left knee; I10 Essential (primary) hypertension; Z79.899 Other long term (current) drug therapy; Z88.8 Allergy status to other drugs, medicaments and biological substances; F17.200 Nicotine dependence, unspecified, uncomplicated
CPT/HCPCS: 73502; 73552; 73562; 99284; J1885

== ENCOUNTER 2025-01-14 16:52 | Outpatient (CLI) | payer BC, SELFPAY ==
--- NOTE | 2025-01-14 | MR_ITS ---
PROCEDURE INFORMATION: Exam: MR Left Lower Extremity Joint Without Contrast, Knee Exam date and time: 01/14/2025 4:58 PM Age: 44 years old Clinical indication: Pain; Knee; Left TECHNIQUE: Imaging protocol: Magnetic resonance imaging of the left lower extremity joint without contrast. Exam focused on the knee. COMPARISON: CR XR KNEE LT 3V 01/10/2025 4:05 AM FINDINGS: Bones/joints: There is diffuse thinning of the articular cartilage throughout the knee, most pronounced at the patella. Severe degenerative changes in the patellofemoral compartment including subchondral edema of the patella. Significant lateral patellar subluxation. No acute fracture or significant bone contusion. Medial meniscus: Unremarkable. No tear. Lateral meniscus: Unremarkable. No tear. Anterior cruciate ligament: Unremarkable. No tear. Posterior cruciate ligament: Unremarkable. No tear. Medial capsule and supporting structures: Unremarkable. No tear. Lateral capsule and supporting structures: Unremarkable. No tear. Extensor mechanism of knee: Unremarkable. No tear. Soft tissues: Unremarkable. 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 Age-indeterminate lateral patellar subluxation. No internal soft tissue derangement.
== END 2025-01-14 23:59 | disposition home or self-care (01) ==
LOC: RAD 16:53
PROVIDERS: PCP Nurse Practitioner Family; Visit Provider Nurse Practitioner Family
DX: S83.002A Unspecified subluxation of left patella, initial encounter (principal); M17.12 Unilateral primary osteoarthritis, left knee; R93.6 Abnormal findings on diagnostic imaging of limbs
CPT/HCPCS: 73721